=== PATIENT | male | born 1955 | race Caucasian/White ===

== ENCOUNTER 2019-05-18 17:08 | Emergency (ER) | payer OTHER, SELFPAY ==
[2019-05-18 17:10] VITALS: BP 134/78; PULSE 67; RESP 13; TEMP 36.6; O2SAT 97
[2019-05-18 18:00] VITALS: BP 137/77; PULSE 56; O2SAT 99
--- NOTE | 2019-05-18 18:24 | ED.WOUNDLAC ---
HPI - Wound/Laceration General Chief Complaint: Wound/Laceration Stated Complaint: left lwr leg wound, states all the way to the bone Time Seen by Provider: 05/18/19 17:48 Source: patient Mode of arrival: ambulatory Limitations: no limitations History of Present Illness HPI narrative: Patient is a 63-year-old male who presents with left like laceration. He is currently moving he was in his garage he ran into a metal statue. He is not on any blood thinners bleeding is controlled. He denies numbness or tingling. Onset (ago): minute(s) Related Data Home Medications Medication Instructions Recorded Confirmed No Known Home Medications 02/24/19 02/24/19 Allergies Allergy/AdvReac Type Severity Reaction Status Date / Time No Known Drug Allergies Allergy Verified 02/24/19 17:20 Review of Systems Review of Systems GENERAL: Denies chills,fever HEENT: Denies throat pain RESPIRATORY: Denies dyspnea, cough, wheezing CARDIOVASCULAR: Denies chest pain, palpitations GASTROINTESTINAL: Denies nausea, vomiting MUSCULOSKELETAL: Denies extremity pain, injury SKIN: See HPI NEUROLOGIC: Denies weakness, dizziness, headache, numbness 8 point review of systems is negative except for those stated above and HPI [facility] Medical History Patient denies significant medical history (Acute) Social History Smoking Status: Never smoker Social History Smoking Status: Never smoker Exam Initial Vital Signs Initial Vital Signs: Vital Signs Temperature 98 F 05/18/19 17:10 Pulse Rate 67 05/18/19 17:10 Respiratory Rate 13 05/18/19 17:10 Blood Pressure 134/78 05/18/19 17:10 Pulse Oximetry 97 05/18/19 17:10 GENERAL: Well-appearing, well-nourished and in no acute distress. CARDIOVASCULAR: peripheral pulses in tact, cap refill <2 sec RESPIRATORY: No respiratory distress, speaks in full sentences without difficulty EXTREMITIES: Normal range of motion, no clubbing or edema. Neurovascularly intact NEUROLOGICAL: Cranial nerves II through XII grossly intact. Normal gait and speech. SKIN: 7 cm laceration left leg NOT good skin approximation and skin tear noted. Procedures Laceration Repair Laceration 1: Site: lower extremity Side (If applicable): left Size (cm): 7 Description: flap and irregular Depth: simple, single layer Local Anesthetic: lidocaine 1% Amount of anesthesia used (mL): 6 Pre-repair: wound explored, irrigated extensively and deep structures intact Skin layer closed with: nylon Size (cm): 4-0 Number of sutures: 5 Course Orders Ordered: Discontinued Medications Diphtheria/Tetanus/Acell Pertussis (Adacel) 0.5 ml IM .ONCE ONE Stop: 05/18/19 17:43 Lidocaine HCl (Xylocaine 1%) 10 ml SUBCUT NOW ONE Stop: 05/18/19 17:49 Lidocaine HCl (Xylocaine 1% (Pf)) 6 ml SUBCUT NOW ONE Stop: 05/18/19 17:58 Vital Signs - 8 hr 05/18/19 17:10 05/18/19 18:00 Temperature 98 F Pulse Rate 67 56 L Respiratory Rate 13 Blood Pressure 134/78 Blood Pressure [Left Arm] 137/77 Pulse Oximetry 97 99 Discharge Plan Departure Patient Disposition: Home Clinical Impression: Laceration of left leg Qualifiers: Encounter type: initial encounter Qualified Code(s): S81.812A - Laceration without foreign body, left lower leg, initial encounter Instructions: DI for Laceration Repair Activity Restrictions/Additional Instructions: 1. Have your suture removed in 5-7 days, you may go to walk-in clinic, return to the ER or call your primary care physician. 2. No soaking in water including dishes, bathtubs, Lakes, swimming pools etc Recommend changing dressing tomorrow morning. May apply Neosporin or antibiotic ointment to the area 1-2 times daily. 3. Signs of infection include, but not limited to, increased redness, increased swelling, increased pain, fever and purulent drainage, if the symptoms should arise, you may need an antibiotic and you should have a reevaluation either by your primary care provider or by the emergency department. Prescriptions: No Action No Known Home Medications RF: 0 [facility]errals[facility] [Outside]
[2019-05-18] MEDS: TET,DIPH,PERTUSS(ACELL),VAC/PF 0.5 ML SYRINGE IM (18:29)
[2019-05-18] MEDS: LIDOCAINE 1% 20 ML 10 ML SUBCUT (18:32)
== END 2019-05-18 18:55 | disposition home or self-care (01) ==
PROVIDERS: Emergency Provider Emergency Medicine
DX: S81.812A Laceration without foreign body, left lower leg, initial encounter (principal); Z23 Encounter for immunization
CPT/HCPCS: 12002; 90471; 99282; 99283; 90715

== ENCOUNTER → 2019-05-23 07:16 | Outpatient (CLI) | payer OTHER, SELFPAY ==
[2019-05-23 08:54] LABS: Add Manual Diff / Slide Review NO; Basophils Absolute Auto 100 /uL (0-100); Basophils Percent Auto 1.4 % (0-2); Eosinophils Absolute Auto 200 /uL (0-450); Eosinophils Percent Auto 5.9 % (2-4); Hematocrit 45.8 % (41-53); Hemoglobin 15.6 g/dL (13.5-17.5); Hemoglobin A1C% w Est Avg Glu 4.7 % (4.0-6.0); Lymphocytes Absolute Auto 1000 /uL (1100-4500); Lymphocytes Percent Auto 25.7 % (25-40); Mean Corpuscular Hemoglobin 33.6 PG (26-34); Monocytes Absolute Auto 300 /uL (0-900); Monocytes Percent Auto 7.8 % (3-14); Neutrophils Absolute Auto 2200 /uL (1500-7000); Neutrophils Percent Auto 59.2 % (50-75); Platelet Count 211 X10^3/uL (150-400); Red Blood Cell Count 4.63 X10^6/uL (4.5-5.9); Red Cell Distribution Width 13.3 % (11.6-14.8); White Blood Cell Count 3.8 X10^3/uL (4.5-11.0)
[2019-05-23 09:00] LABS: Alanine Aminotransferase 24 IU/L (21-72); Albumin 4.4 g/dL (3.5-5.0); Albumin Globulin Ratio 1.4 (1.0-2.8); Alkaline Phosphatase 60 U/L (38-126); Aspartate Aminotransferase 28 IU/L (17-59); Bilirubin Direct 0.1 mg/dL (0.0-0.4); Blood Urea Nitrogen 20 mg/dL (9-20); Calcium 9.7 mg/dL (8.4-10.2); Carbon Dioxide 25 mmol/L (22-32); Chloride 104 mmol/L (98-107); Cholesterol 202 mg/dL (140-199); Estimated Glomerular Filt Rate > 60.0 mL/min (>60); Gamma Glutamyl Transpeptidase 30 U/L (15-73); Globulin 3.2 g/dL (1.7-4.1); Glucose 92 mg/dL (80-110); HDL Cholesterol 101 mg/dL (40-60); HEMOLYSIS < 15 (0-50); LDL Cholesterol Calculated 90 mg/dL (<100); Lactate Dehydrogenase 359 U/L (313-618); Phosphorous 3.3 mg/dL (2.3-3.7); Potassium 4.1 mmol/L (3.4-5.1); Sodium 142 mmol/L (137-145); Total Protein 7.6 g/dL (6.3-8.2); Triglycerides 55 mg/dL (35-150); Uric Acid 5.2 mg/dL (3.5-8.5)
[2019-05-23 09:03] LABS: High Sensitivity CRP - Cardiac 0.8 mg/L (1.0-3.0)
[2019-05-23 09:11] LABS: Fibrinogen 301 mg/dL (211-428)
[2019-05-23 09:18] LABS: HEMOLYSIS < 15 (0-50); Iron 179 ug/dL (49-181)
[2019-05-23 09:29] LABS: Percent Iron Saturation 55 % (20-50); Total Iron Binding Capacity 326 ug/dL (261-462); Transferrin 280 mg/dL (206-381)
[2019-05-23 09:34] LABS: Ferritin 80.2 ng/mL (17.9-464)
[2019-05-23 09:36] LABS: Free T3, Triiodothyronine Free 3.98 pg/mL (2.77-5.27); Free T4, Direct Thyroxine 0.78 ng/dL (0.78-2.19); T4 Total Thyroxine 5.92 ug/dL (5.5-11.0); Vitamin D 25 Hydroxy (D3) 88.3 ng/mL (30.0-100.0)
[2019-05-23 09:49] LABS: Thyroid Stimulating Hormone 3.53 uIU/mL (0.47-4.68)
[2019-05-23 09:59] LABS: Progesterone, Total 1.31 ng/mL
[2019-05-23 10:15] LABS: Estradiol, Total 41.3 pg/mL
[2019-05-25 13:51] LABS: Homocysteine 9.8 umol/L (< 11.4)
[2019-05-25 14:02] LABS: Sex Hormone Binding Globulin 98 nmol/L (22-77)
[2019-05-25 15:07] LABS: Dehydroepiandrosterone Sulfate 121 mcg/dL (24-244)
[2019-05-25 15:19] LABS: PSA, Total 0.7 ng/mL (< 4.1)
[2019-05-25 15:32] LABS: Magnesium, RBC 4.8 mg/dL (4.0-6.4)
[2019-05-25 15:48] LABS: Anti Thyroglobulin Antibody < 1 IU/mL (< 2); Thyroid Peroxidase Antibodies < 1 IU/mL (< 9)
[2019-05-25 16:40] LABS: Triiodothyronine T3 Total 97 ng/dL (76-181)
[2019-05-27 16:40] LABS: Triiodothyronine T3 Reverse 13 ng/dL (8-25)
[2019-05-30 13:43] LABS: Testosterone Free 89.8 pg/mL (35.0-155.0); Testosterone Total 741 ng/dL (250-1100)
[2019-06-07 10:34] LABS: Estrone,Serum 36
== END ==
PROVIDERS: Visit Provider Naturopath
DX: R53.83 Other fatigue (principal); E29.1 Testicular hypofunction; L27.2 Dermatitis due to ingested food; B37.9 Candidiasis, unspecified
CPT/HCPCS: 36415; 80053; 80061; 82248; 82306; 82627; 82670; 82728; 82977; 83036; 83090; 83540; 83550; 83615; 83735; 84100; 84144; 84153; 84154; 84270; 84402; 84403; 84436; 84439; 84443; 84480; 84481; 84482; 84550; 85025; 85384; 86140; 86376; 86800

== ENCOUNTER → 2020-10-19 07:19 | Outpatient (CLI) | payer MEDICARE, SELFPAY ==
[2020-10-19 08:46] LABS: Add Manual Diff / Slide Review NO; Basophils Absolute Auto 0 /uL (0-100); Basophils Percent Auto 1.1 % (0-2); Eosinophils Absolute Auto 200 /uL (0-450); Hematocrit 47.5 % (41-53); Hemoglobin 15.6 g/dL (13.5-17.5); Lymphocytes Absolute Auto 1300 /uL (1100-4500); Lymphocytes Percent Auto 31.4 % (25-40); Mean Corpuscular HGB Conc 32.8 % (30-36); Mean Corpuscular Volume 97.8 fL (80-100); Monocytes Absolute Auto 600 /uL (0-900); Monocytes Percent Auto 14.9 % (3-14); Neutrophils Absolute Auto 2000 /uL (1500-7000); Neutrophils Percent Auto 48.6 % (50-75); Platelet Count 219 X10^3/uL (150-400); Red Blood Cell Count 4.86 X10^6/uL (4.5-5.9); Red Cell Distribution Width 13.3 % (11.6-14.8); White Blood Cell Count 4.1 X10^3/uL (4.5-11.0)
[2020-10-19 08:57] LABS: Alanine Aminotransferase 35 IU/L (<50); Albumin 4.4 g/dL (3.5-5.0); Albumin Globulin Ratio 1.5 (1.0-2.8); Alkaline Phosphatase 64 U/L (38-126); Aspartate Aminotransferase 36 IU/L (17-59); BUN Creatinine Ratio 19.7 (6-22); Bilirubin Total 0.8 mg/dL (0.2-1.3); Blood Urea Nitrogen 13 mg/dL (9-20); Calcium 9.4 mg/dL (8.4-10.2); Carbon Dioxide 28 mmol/L (22-32); Chloride 104 mmol/L (98-107); Cholesterol 211 mg/dL (140-199); Estimated Glomerular Filt Rate > 60.0 mL/min (>60); Glucose 106 mg/dL (80-110); HDL Cholesterol 102 mg/dL (40-60); HEMOLYSIS < 15 (0-50); LDL Cholesterol Calculated 92 mg/dL (<100); Potassium 4.7 mmol/L (3.4-5.1); Sodium 138 mmol/L (137-145); Total Protein 7.4 g/dL (6.3-8.2); Triglycerides 86 mg/dL (35-150)
[2020-10-19 09:24] LABS: Prostate Specific Antigen Scrn 0.725 ng/mL (0.1-4.0)
[2020-10-19 17:17] LABS: Hep C Virus Ab w/Reflex Quant NEGATIVE s/c (NEGATIVE)
== END ==
PROVIDERS: PCP Internal Medicine; Referring Provider Internal Medicine; Visit Provider Internal Medicine
DX: Z00.00 Encounter for general adult medical examination without abnormal findings (principal); Z12.5 Encounter for screening for malignant neoplasm of prostate
CPT/HCPCS: 36415; 80053; 80061; 85025; 86803; G0103

== ENCOUNTER → 2023-10-23 09:40 | Outpatient (CLI) | payer OTHER, SELFPAY ==
--- NOTE | 2023-10-23 09:41 | DI.RAD.S_ITS ---
Bone Density Report Name: ANGLE HOGUE Age: 68 Sex: Male Ethnicity: White Date of : 1955 Indication: parental hip fracture; prior fracture; Referring Provider: FRANKLIN FREEMAN Study: Bone densitometry was performed. Exam Date: October 23, 2023 Accession number: [id number] Bone Density: Region BMD T-score Z-score Classification AP Spine(L1-L4) 0.981 -0.6 -0.2 Normal Femoral Neck (Left) 0.728 -1.1 -0.4 Osteopenia Total Hip (Left) 0.834 -0.9 -0.7 Normal Femoral Neck (Right) 0.626 -2.0 -1.1 Osteopenia Total Hip (Right) 0.793 -1.2 -1.0 Osteopenia Total Hip Mean 0.813 -1.1 -0.9 Osteopenia World Health Organization criteria for BMD impression classify patients as: Normal (T-score at or above -1.0), Osteopenia (T-score between -1.0 and -2.5), or Osteoporosis (T-score at or below -2.5). 10-year Fracture Risk(1): Major Osteoporotic Fracture 20% Hip Fracture 5.7% Reported Risk Factors: [place] (), Neck BMD=0.626, BMI=21.8, previous fracture, parental fracture (1) FRAX(R) Version 3.08. Fracture probability calculated for an untreated patient. Fracture probability may be lower if the patient has received treatment. Impression: The patient has low bone mass, based on the Right Femoral Neck T-score. The patient has an estimated ten-year risk of hip fracture of 5.7% and an estimated ten-year risk of major fracture of 20%, based on the WHO FRAX algorithm. The patient has risk factors, including: parental hip fracture, previous fracture. Discussion: BONE DENSITY IS LOW AT ONE OR MORE SKELETAL SITES. THE PATIENT'S BMD AND CLINICAL RISK FACTORS CONTRIBUTE TO THIS PATIENT'S HIGH RISK OF FRACTURE. This patient's lowest T-score is low at one or more skeletal sites. It meets the World Health Organization's (WHO) criteria for low bone mass (T-score between -1.0 and -2.5). The patient's 10-year risk of hip fracture and 10 year risk of a major osteoporotic fracture as calculated by FRAX exceeds the threshold where pharmacological therapy is recommended by the National Osteoporosis Foundation (NOF). However, all treatment decisions require clinical judgment and consideration of individual patient factors, including patient preferences, comorbidities, previous drug use, risk factors not captured in the FRAX model (e.g., frailty, falls, vitamin D deficiency, increased bone turnover, interval significant decline in bone density) and possible under or overestimation of fracture risk by FRAX. The patient should follow a healthful lifestyle (good nutrition with adequate calcium and vitamin D, and appropriate weight-bearing exercise). Follow-Up: Consider repeating this study in 2 years to reassess this patient's status, or sooner if there is some new clinical indication. Reported by: JUSTIN ZAMBRANO M.D. on 10/23/2023 10:17:00 AM.
== END ==
LOC: RAD 09:41
PROVIDERS: PCP Internal Medicine; Referring Provider Internal Medicine; Visit Provider Internal Medicine
DX: M81.0 Age-related osteoporosis without current pathological fracture (principal)
CPT/HCPCS: 77080